=== PATIENT | female | born 1980 | race African-American/Black ===

== ENCOUNTER 2023-12-17 13:02 | Outpatient (CLI) | payer OTHER | END 2023-12-17 13:03 | disposition home or self-care (01) | LOC: SCSMRI 13:02 | PROVIDERS: ATTEND Family Medicine | DX: M54.12 Radiculopathy, cervical region (principal); M79.602 Pain in left arm; R22.32 Localized swelling, mass and lump, left upper limb; R20.0 Anesthesia of skin; R59.1 Generalized enlarged lymph nodes | CPT/HCPCS: 72141 ==